=== PATIENT | male | born 1995 | race African-American/Black ===

== ENCOUNTER 2018-05-23 21:39 | Emergency (ER) | payer OTHER, SELFPAY | END 2018-05-23 23:04 | disposition home or self-care (01) | LOC: ERS 21:39 | DX: H10.9 Unspecified conjunctivitis (principal); I10 Essential (primary) hypertension; F17.210 Nicotine dependence, cigarettes, uncomplicated | CPT/HCPCS: 99282 ==

== ENCOUNTER 2019-11-25 15:30 | Emergency (ER) | payer OTHER, SELFPAY ==
[2019-11-25] MEDS ORDERED: Azithromycin 250 MG TAB ONE (16:21)
[2019-11-25] MEDS ORDERED: Ketorolac Tromethamine 60 MG/2 ML VIAL ONE (16:21)
[2019-11-25] MEDS ORDERED: Lidocaine 1% PF 5 ML VIAL ONE (16:21)
[2019-11-25] MEDS ORDERED: cefTRIAXone\\ROCEPHIN 250 MG VIAL ONE (16:21)
--- NOTE | 2019-11-25 17:14 | ULT ---
SCROTAL ULTRASOUND INDICATION: Left-sided testicular pain TECHNIQUE: Grayscale, color Doppler spectral Doppler images were obtained of the scrotum. COMPARISON: None. FINDINGS: Right Testicle: Size: 3.0 x 4.3 x 2.3 cm. Flow: There is normal vascular flow to the right testicle Hydrocele: No right-sided hydrocele is evident Epididymis: Tiny right epididymal head cysts (the largest measures 3.7 mm) otherwise normal appearin g. Left Testicle: Size: 3.4 x 4.3 x 2.6 cm. Flow: There is normal vascular flow to left testicle. Hydrocele: Small left hydrocele Epididymis: Increased vascular flow to the left epididymis with a heterogeneous appearance of the ep ididymal parenchyma. Additional findings: None. Impression: 1. Left-sided epididymitis with small left hydrocele. 2. No intratesticular mass or torsion demonstrated. 3. Small right epididymal head cysts.
== END 2019-11-25 17:55 ==
LOC: ERS 15:30
DX: N45.1 Epididymitis (principal); I10 Essential (primary) hypertension; F17.210 Nicotine dependence, cigarettes, uncomplicated
CPT/HCPCS: 76870; 93976; 96372; J0696; J1885; J2001

== ENCOUNTER 2024-11-23 18:28 | Emergency (ER) | payer SELFPAY ==
[2024-11-23] MEDS ORDERED: Dexamethasone 10 MG/ML VIAL ONE (19:16)
== END 2024-11-23 19:27 | disposition home or self-care (01) ==
LOC: ERS 18:28
DX: J02.0 Streptococcal pharyngitis (principal); I10 Essential (primary) hypertension; F17.290 Nicotine dependence, other tobacco product, uncomplicated; F17.210 Nicotine dependence, cigarettes, uncomplicated
CPT/HCPCS: 87430; 99282; J1100

== ENCOUNTER 2025-11-12 09:59 | Emergency (ER) | payer SELFPAY | END 2025-11-12 11:15 | disposition home or self-care (01) | LOC: ERS 09:59 | DX: S60.012A Contusion of left thumb without damage to nail, initial encounter (principal); I10 Essential (primary) hypertension; F17.210 Nicotine dependence, cigarettes, uncomplicated; W23.1XXA Caught, crushed, jammed, or pinched between stationary objects, initial encounter | CPT/HCPCS: 99283 ==